=== PATIENT | female | born 1960 | race Caucasian/White ===

== ENCOUNTER 2021-11-07 09:50 | Inpatient (IN) ==
[2021-11-07] MEDS ORDERED: Naloxone 0.4 MG/ML INJ IVP PRN (13:41)
[2021-11-07] MEDS ORDERED: *HR* Promethazine 25 MG/ML VIAL IM PRN (13:41)
[2021-11-07] MEDS ORDERED: Ondansetron 4 MG/2 ML VIAL IVP PRN (13:41)
[2021-11-07] MEDS ORDERED: Melatonin 3 MG TABLET PO PRN (13:41)
[2021-11-07 14:49] LABS: Hematocrit 19.9 % (35.3-44.9); Hemoglobin 6.4 g/dL (11.5-15.4)
[2021-11-07] MEDS ORDERED: Lidocaine -MPF 2% 5 ML VIAL ONE (15:36)
[2021-11-07] MEDS ORDERED: *HR* FentaNYL (PF) 100 MCG/2 ML VIAL ONE (15:36)
[2021-11-07] MEDS ORDERED: *HR* Propofol 200 MG/20 ML VIAL IVP ONE (15:37)
[2021-11-07] MEDS ORDERED: 0.9 % Sodium Chloride 250 ML IVC SCH (16:00)
[2021-11-07] MEDS: Pantoprazole 40 MG VIAL IVP SCH (21:13)
[2021-11-07] MEDS: 0.9 % Sodium Chloride 1,000 ML IVC SCH (23:48)
[2021-11-08 02:09] LABS: Hematocrit 21.7 % (35.3-44.9); Mean Corpuscular HGB Conc 32.3 g/dL (31.6-35.5)
[2021-11-08 02:10] LABS: Basophils % 0.4 %; Eosinophils % 0.3 %; Immature Granulocytes % 5.2 % (0-4); Immature Platelets 5.7 % (1.1-6.1); Lymphocytes % 33.2 %; Mean Corpuscular Hemoglobin 29.7 pg (28.0-33.3); Mean Corpuscular Volume 91.9 fL (83.0-100.0); Mean Platelet Volume 10.6 fL (9.4-12.4); Monocytes # 0.7 K/mcL (0.0-1.3); Monocytes % 9.4 %; Neutrophils # 3.8 K/mcL (1.6-8.9); Red Blood Count 2.36 M/mcL (3.82-4.97); Red Cell Distribution Width 12.6 % (11.5-14.5); Segmented Neutrophils % 51.5 %; White Blood Count 7.4 K/mcL (4.3-11.1)
[2021-11-08 02:12] LABS: Lymphocytes # 2.5 K/mcL (0.6-4.6); Platelet Count 57 K/mcL (140-400)
[2021-11-08 02:21] LABS: Alanine Aminotransferase 8 Units/L (7-52); Albumin 2.8 g/dL (3.5-5.7); Albumin/Globulin Ratio 1.3 (1.1-2.2); Alkaline Phosphatase 124 Units/L (34-104); Aspartate Amino Transferase 39 Units/L (13-39); BUN/Creatinine Ratio 26 (6-26); Bilirubin,Total 0.3 mg/dL (0.3-1.0); Blood Urea Nitrogen 29 mg/dL (8-23); Calcium 8.6 mg/dL (8.6-10.3); Carbon Dioxide 24 mEq/L (23-29); Chloride 111 mEq/L (98-107); Globulin 2.2 g/dL (2.4-3.5); Glucose 108 mg/dL (70-105); Magnesium 1.4 mg/dL (1.6-2.6); Osmolality,Calculated 296 (280-300); Phosphorous 2.7 mg/dL (2.7-4.5); Potassium 4.3 mEq/L (3.5-5.1); Sodium 140 mEq/L (136-145); eGFR For African Americans > 60 (> 60); eGFR For Non-African Americans 50 (> 60)
[2021-11-08] MEDS: Pantoprazole 40 MG VIAL IVP SCH ×2 (06:30→18:24)
[2021-11-08 10:51] LABS: Hematocrit 24.7 % (35.3-44.9); Hemoglobin 8.1 g/dL (11.5-15.4)
[2021-11-08 18:24] LABS: Hematocrit 24.7 % (35.3-44.9); Hemoglobin 8.1 g/dL (11.5-15.4); Mean Corpuscular HGB Conc 32.8 g/dL (31.6-35.5); Mean Corpuscular Hemoglobin 30.2 pg (28.0-33.3); Mean Corpuscular Volume 92.2 fL (83.0-100.0); Mean Platelet Volume 10.8 fL (9.4-12.4); Platelet Count 49 K/mcL (140-400); Red Blood Count 2.68 M/mcL (3.82-4.97); White Blood Count 7.1 K/mcL (4.3-11.1)
[2021-11-08] MEDS: Cyanocobalamin (B-12) 1,000 MCG/ML VIAL SQ SCH (18:30)
[2021-11-09] MEDS: Pantoprazole 40 MG VIAL IVP SCH ×2 (05:08→17:42)
[2021-11-09] MEDS: Benzonatate 100 MG CAPSULE PO PRN (06:22)
[2021-11-09 06:37] LABS: Basophils % 0.2 %
[2021-11-09 06:39] LABS: Eosinophils % 0.2 %; Hematocrit 21.5 % (35.3-44.9); Immature Granulocytes % 1.7 % (0-4); Immature Platelets 6.3 % (1.1-6.1); Lymphocytes # 1.5 K/mcL (0.6-4.6); Lymphocytes % 28.6 %; Mean Corpuscular HGB Conc 32.6 g/dL (31.6-35.5); Mean Corpuscular Hemoglobin 30.4 pg (28.0-33.3); Mean Corpuscular Volume 93.5 fL (83.0-100.0); Mean Platelet Volume 11.1 fL (9.4-12.4); Monocytes # 0.7 K/mcL (0.0-1.3); Monocytes % 13.2 %; Nucleated Red Blood Cells 0.4 /100 WBC (0); Red Cell Distribution Width 13.1 % (11.5-14.5); Segmented Neutrophils % 56.1 %; White Blood Count 5.4 K/mcL (4.3-11.1)
[2021-11-09 06:49] LABS: Platelet Count 41 K/mcL (140-400)
[2021-11-09 08:27] LABS: Alanine Aminotransferase 7 Units/L (7-52); Albumin 2.6 g/dL (3.5-5.7); Albumin/Globulin Ratio 1.2 (1.1-2.2); Alkaline Phosphatase 125 Units/L (34-104); Aspartate Amino Transferase 18 Units/L (13-39); BUN/Creatinine Ratio 15 (6-26); Bilirubin,Total 0.4 mg/dL (0.3-1.0); Blood Urea Nitrogen 15 mg/dL (8-23); Calcium 8.1 mg/dL (8.6-10.3); Carbon Dioxide 23 mEq/L (23-29); Chloride 109 mEq/L (98-107); Globulin 2.1 g/dL (2.4-3.5); Glucose 118 mg/dL (70-105); Osmolality,Calculated 286 (280-300); Potassium 3.8 mEq/L (3.5-5.1); Sodium 137 mEq/L (136-145); Total Protein 4.7 g/dL (6.4-8.9); eGFR For African Americans > 60 (> 60); eGFR For Non-African Americans 58 (> 60)
[2021-11-09] MEDS: Cyanocobalamin (B-12) 1,000 MCG/ML VIAL SQ SCH (08:46)
[2021-11-09 11:30] LABS: Influenza A PCR Negative (Negative); Influenza B PCR Negative (Negative); Resp. Syncytial Virus PCR Negative (Negative)
[2021-11-09 11:43] LABS: SARS-CoV-2 by PCR (In House) Negative (Negative)
[2021-11-09 13:30] LABS: Hemoglobin 7.2 g/dL (11.5-15.4)
[2021-11-09 13:31] LABS: Hematocrit 22.1 % (35.3-44.9)
[2021-11-09] MEDS: 0.9 % Sodium Chloride 1,000 ML IVC SCH (14:12)
[2021-11-09 17:11] LABS: Hematocrit 21.8 % (35.3-44.9); Hemoglobin 7.2 g/dL (11.5-15.4)
[2021-11-09] MEDS: Acetaminophen 325 MG TABLET PO PRN ×2 (18:01→23:25)
[2021-11-09 22:54] LABS: Hematocrit 22.2 % (35.3-44.9); Hemoglobin 7.2 g/dL (11.5-15.4)
[2021-11-10] MEDS: Pantoprazole 40 MG VIAL IVP SCH ×2 (05:54→16:58)
[2021-11-10 06:00] LABS: Hemoglobin 7.1 g/dL (11.5-15.4); Mean Corpuscular Hemoglobin 30.6 pg (28.0-33.3); Red Blood Count 2.32 M/mcL (3.82-4.97)
[2021-11-10 06:01] LABS: Hematocrit 21.7 % (35.3-44.9); Immature Platelets 9.9 % (1.1-6.1); Mean Corpuscular HGB Conc 32.7 g/dL (31.6-35.5); Mean Corpuscular Volume 93.5 fL (83.0-100.0); Mean Platelet Volume 11.7 fL (9.4-12.4); Nucleated Red Blood Cells 0.3 /100 WBC (0); Red Cell Distribution Width 13.1 % (11.5-14.5); White Blood Count 6.7 K/mcL (4.3-11.1)
[2021-11-10 06:03] LABS: Platelet Count 48 K/mcL (140-400)
[2021-11-10 06:15] LABS: Alanine Aminotransferase 8 Units/L (7-52); Albumin 2.8 g/dL (3.5-5.7); Albumin/Globulin Ratio 1.2 (1.1-2.2); Alkaline Phosphatase 141 Units/L (34-104); Aspartate Amino Transferase 12 Units/L (13-39); BUN/Creatinine Ratio 15 (6-26); Bilirubin,Total 0.4 mg/dL (0.3-1.0); Blood Urea Nitrogen 15 mg/dL (8-23); Calcium 8.5 mg/dL (8.6-10.3); Carbon Dioxide 25 mEq/L (23-29); Chloride 106 mEq/L (98-107); Globulin 2.3 g/dL (2.4-3.5); Glucose 107 mg/dL (70-105); Osmolality,Calculated 287 (280-300); Potassium 3.6 mEq/L (3.5-5.1); Sodium 138 mEq/L (136-145); Total Protein 5.1 g/dL (6.4-8.9); eGFR For African Americans > 60 (> 60); eGFR For Non-African Americans 57 (> 60)
[2021-11-10 06:35] LABS: Lymphocytes # 1.8 K/mcL (0.6-4.6); Monocytes # 0.6 K/mcL (0.0-1.3); Neutrophils # 4.3 K/mcL (1.6-8.9); Platelet Estimate Decreased (Normal)
[2021-11-10] MEDS: Cyanocobalamin (B-12) 1,000 MCG/ML VIAL SQ SCH (08:35)
[2021-11-10 12:01] LABS: Adenovirus Not Detected (Not Detect); Bordetella Pertussis Not Detected (Not Detect); Chlamydophila pneumoniae Not Detected (Not Detect); Coronavirus 229E Not Detected (Not Detect); Coronavirus HKU1 Not Detected (Not Detect); Coronavirus NL63 Not Detected (Not Detect); Coronavirus OC43 Not Detected (Not Detect); Human Metapneumovirus Not Detected (Not Detect); Human Rhinovirus/Enterovirus Not Detected (Not Detect); Influenza A Subtype 2009 H1 Not Detected (Not Detect); Influenza B Not Detected (Not Detect); Mycoplasma pneumoniae Not Detected (Not Detect); Parainfluenza Virus 1 Not Detected (Not Detect); Parainfluenza Virus 2 Not Detected (Not Detect); Parainfluenza Virus 3 Not Detected (Not Detect); Parainfluenza Virus 4 Not Detected (Not Detect); Respiratory Syncytial Virus Not Detected (Not Detect); SARS-CoV-2 Not Detected (Not Detect)
[2021-11-10 12:42] LABS: Hematocrit 24.7 % (35.3-44.9)
[2021-11-10 17:46] LABS: Bilirubin,Urine Negative (Negative); Blood,Urine Negative (Negative); Clarity,Urine Clear (Clear); Color,Urine Light-Yellow (Yellow); Glucose,Urine (UA) Normal (Normal); Ketones,Urine Negative (Negative); Leukocyte Esterase,Urine Negative (Negative); Nitrite,Urine Negative (Negative); PH,Urine 5.5 pH Units (5.0-8.0); Protein,Urine Trace mg/dL (Neg-Trace); Specific Gravity,Urine 1.015 (1.010-1.025); Urobilinogen,Urine Normal (Normal)
[2021-11-10 18:00] LABS: Hematocrit 24.1 % (35.3-44.9); Hemoglobin 7.8 g/dL (11.5-15.4)
[2021-11-10] MEDS: Benzonatate 100 MG CAPSULE PO PRN (19:31)
[2021-11-10] MEDS: Acetaminophen 325 MG TABLET PO PRN (20:54)
[2021-11-11] MEDS: Pantoprazole 40 MG VIAL IVP SCH (05:25)
[2021-11-11 08:20] LABS: Basophils % 0.2 %; Eosinophils % 0.1 %; Hemoglobin 7.7 g/dL (11.5-15.4); Red Cell Distribution Width 13.2 % (11.5-14.5)
[2021-11-11 08:22] LABS: Hematocrit 23.5 % (35.3-44.9); Immature Granulocytes % 4.3 % (0-4); Immature Platelets 11.1 % (1.1-6.1); Lymphocytes # 2.2 K/mcL (0.6-4.6); Lymphocytes % 25.6 %; Mean Corpuscular HGB Conc 32.8 g/dL (31.6-35.5); Mean Corpuscular Hemoglobin 30.7 pg (28.0-33.3); Mean Corpuscular Volume 93.6 fL (83.0-100.0); Mean Platelet Volume 11.4 fL (9.4-12.4); Monocytes # 0.9 K/mcL (0.0-1.3); Monocytes % 10.2 %; Neutrophils # 5.1 K/mcL (1.6-8.9); Platelet Count 102 K/mcL (140-400); Red Blood Count 2.51 M/mcL (3.82-4.97); Segmented Neutrophils % 59.6 %; White Blood Count 8.6 K/mcL (4.3-11.1)
[2021-11-11 08:24] LABS: Alanine Aminotransferase 8 Units/L (7-52); Albumin/Globulin Ratio 1.1 (1.1-2.2); Alkaline Phosphatase 154 Units/L (34-104); Aspartate Amino Transferase 11 Units/L (13-39); BUN/Creatinine Ratio 10 (6-26); Bilirubin,Total 0.5 mg/dL (0.3-1.0); Blood Urea Nitrogen 9 mg/dL (8-23); Calcium 8.7 mg/dL (8.6-10.3); Carbon Dioxide 26 mEq/L (23-29); Chloride 103 mEq/L (98-107); Globulin 2.7 g/dL (2.4-3.5); Glucose 119 mg/dL (70-105); Osmolality,Calculated 282 (280-300); Potassium 3.5 mEq/L (3.5-5.1); Sodium 136 mEq/L (136-145); Total Protein 5.7 g/dL (6.4-8.9); eGFR For African Americans > 60 (> 60); eGFR For Non-African Americans > 60 (> 60)
[2021-11-11] MEDS: Cyanocobalamin (B-12) 1,000 MCG/ML VIAL SQ SCH (08:26)
[2021-11-11 11:00] VITALS: BP 116/66; PULSE 92; TEMP 98.8; O2SAT 97
[2021-11-11] MEDS: Benzonatate 100 MG CAPSULE PO PRN (15:27)
== END 2021-11-11 17:45 | disposition home or self-care (01) | DRG 369 ==
LOC: 3NENU
PROVIDERS: ADMIT Hospitalist; ATTEND Hospitalist

== ENCOUNTER 2021-11-14 00:32 | Inpatient (IN) ==
[2021-11-14 02:47] LABS: Alanine Aminotransferase 10 Units/L (7-52); Albumin/Globulin Ratio 0.9 (1.1-2.2); Alkaline Phosphatase 159 Units/L (34-104); Aspartate Amino Transferase 13 Units/L (13-39); BUN/Creatinine Ratio 17 (6-26); Basophils % 0.3 %; Bilirubin,Indirect 0.3 mg/dL (0.0-1.0); Bilirubin,Total 0.3 mg/dL (0.3-1.0); Blood Urea Nitrogen 14 mg/dL (8-23); Calcium 9.2 mg/dL (8.6-10.3); Carbon Dioxide 26 mEq/L (23-29); Chloride 101 mEq/L (98-107); Globulin 3.2 g/dL (2.4-3.5); Glucose 128 mg/dL (70-105); Osmolality,Calculated 284 (280-300); Potassium 3.8 mEq/L (3.5-5.1); Sodium 136 mEq/L (136-145); Total Protein 6.2 g/dL (6.4-8.9); eGFR For African Americans > 60 (> 60); eGFR For Non-African Americans > 60 (> 60)
[2021-11-14 02:49] LABS: Hematocrit 21.3 % (35.3-44.9); Hemoglobin 6.8 g/dL (11.5-15.4); Immature Granulocytes % 3.4 % (0-4); Immature Platelets 7.1 % (1.1-6.1); Lymphocytes # 1.5 K/mcL (0.6-4.6); Lymphocytes % 12.6 %; Mean Corpuscular HGB Conc 31.9 g/dL (31.6-35.5); Mean Corpuscular Hemoglobin 30.4 pg (28.0-33.3); Mean Corpuscular Volume 95.1 fL (83.0-100.0); Mean Platelet Volume 11.3 fL (9.4-12.4); Monocytes # 0.7 K/mcL (0.0-1.3); Monocytes % 6.3 %; Neutrophils # 9.1 K/mcL (1.6-8.9); Platelet Count 349 K/mcL (140-400); Red Blood Count 2.24 M/mcL (3.82-4.97); Red Cell Distribution Width 13.7 % (11.5-14.5); Segmented Neutrophils % 77.4 %; White Blood Count 11.8 K/mcL (4.3-11.1)
[2021-11-14] MEDS ORDERED: Pantoprazole 80 MG in 0.9 % Sodium Chloride 50 ML IVPB ONE (04:59)
[2021-11-14] MEDS ORDERED: Naloxone 0.4 MG/ML INJ IVP PRN (05:21)
[2021-11-14] MEDS ORDERED: Melatonin 3 MG TABLET PO PRN (05:21)
[2021-11-14] MEDS ORDERED: 0.9 % Sodium Chloride 250 ML ONE (05:36)
[2021-11-14] MEDS ORDERED: 0.9 % Sodium Chloride 1,000 ML IVC SCH (05:45)
[2021-11-14] MEDS: Levothyroxine 25 MCG TABLET PO SCH (06:32)
[2021-11-14] MEDS: OLANZapine 5 MG TAB.RAPDIS PO SCH (08:52)
[2021-11-14 10:17] LABS: Hematocrit 21.3 % (35.3-44.9)
[2021-11-14 11:15] LABS: Folate 7.7 ng/mL (3.0-16.0)
[2021-11-14 12:01] LABS: Vitamin B12 > 1500 pg/mL (250-1100)
[2021-11-14] MEDS ORDERED: Anastrozole 1 MG TABLET PO SCH (18:00)
[2021-11-14 18:33] LABS: Hematocrit 21.8 % (35.3-44.9); Hemoglobin 7.1 g/dL (11.5-15.4)
[2021-11-14] MEDS ORDERED: Benzonatate 100 MG CAPSULE PO PRN (20:25)
[2021-11-15] MEDS ORDERED: Pantoprazole 40 MG VIAL IVP SCH (06:00)
[2021-11-15 06:10] LABS: Hematocrit 21.8 % (35.3-44.9)
[2021-11-15] MEDS: Levothyroxine 25 MCG TABLET PO SCH (06:40)
[2021-11-15 06:51] VITALS: BP 128/76; PULSE 94; TEMP 98.3; O2SAT 98
[2021-11-15] MEDS: OLANZapine 5 MG TAB.RAPDIS PO SCH (08:10)
== END 2021-11-15 10:21 | disposition home or self-care (01) | DRG 378 ==
LOC: EMEROOARM 00:32 → 3NENU 00:32 → SUATTDRO 05:34 → 3NENU 06:11
PROVIDERS: ADMIT Internal Medicine; ATTEND Internal Medicine

== ENCOUNTER 2022-03-20 12:31 | Observation (INO) ==
[2022-03-20 13:30] LABS: Immature Granulocytes % 0.4 % (0-4)
[2022-03-20 13:32] LABS: Eosinophils # 0.1 K/mcL (0.0-0.6); Eosinophils % 3.1 %; Hematocrit 18.4 % (35.3-44.9); Immature Platelets 3.9 % (1.1-6.1); Lymphocytes # 0.7 K/mcL (0.6-4.6); Lymphocytes % 28.6 %; Mean Corpuscular Hemoglobin 34.5 pg (28.0-33.3); Mean Corpuscular Volume 111.5 fL (83.0-100.0); Mean Platelet Volume 9.7 fL (9.4-12.4); Monocytes # 0.2 K/mcL (0.0-1.3); Monocytes % 8.4 %; Neutrophils # 1.6 K/mcL (1.6-8.9); Red Blood Count 1.65 M/mcL (3.82-4.97); Red Cell Distribution Width 19.3 % (11.5-14.5); Segmented Neutrophils % 59.5 %; White Blood Count 2.6 K/mcL (4.3-11.1)
[2022-03-20 13:33] LABS: Platelet Count 81 K/mcL (140-400)
[2022-03-20 13:34] LABS: Hemoglobin 5.7 g/dL (11.5-15.4)
[2022-03-20 14:00] LABS: Anisocytosis 1+ (Not Present); Macrocytosis Present (Not Present); Platelet Estimate Decreased (Normal)
[2022-03-20 14:05] LABS: BUN/Creatinine Ratio 13 (6-26); Blood Urea Nitrogen 12 mg/dL (8-23); Calcium 9.2 mg/dL (8.6-10.3); Carbon Dioxide 26 mEq/L (23-29); Chloride 110 mEq/L (98-107); Glucose 89 mg/dL (70-105); Osmolality,Calculated 291 (280-300); Sodium 141 mEq/L (136-145); eGFR For African Americans > 60 (> 60); eGFR For Non-African Americans > 60 (> 60)
[2022-03-20] MEDS ORDERED: Pantoprazole 80 MG in 0.9 % Sodium Chloride 50 ML IVPB ONE (14:47)
[2022-03-20 15:34] LABS: Prothrombin Time 10.9 Seconds (9.4-12.1)
[2022-03-20 15:37] LABS: Activated Partial Thrombo Time 29.8 Seconds (26.0-36.0)
[2022-03-20] MEDS ORDERED: 0.9 % Sodium Chloride 250 ML ONE ×2 (15:47→23:36)
[2022-03-20] MEDS ORDERED: Naloxone 0.4 MG/ML INJ IVP PRN (15:56)
[2022-03-20] MEDS ORDERED: Melatonin 3 MG TABLET PO PRN (16:31)
[2022-03-20] MEDS ORDERED: MOM Conc 10 ML UD.LIQ PO PRN (16:31)
[2022-03-20] MEDS ORDERED: Ondansetron ODT 4 MG TAB.RAPDIS SL PRN (16:31)
[2022-03-20] MEDS ORDERED: Octreotide 50 MCG/ML INJ IVP ONE (17:42)
[2022-03-20] MEDS: Octreotide 400 MCG in 0.9 % Sodium Chloride 100 ML IVC SCH (21:24)
[2022-03-20 21:46] LABS: Hematocrit 21.2 % (35.3-44.9); Hemoglobin 6.7 g/dL (11.5-15.4)
[2022-03-20 22:01] LABS: Albumin 3.6 g/dL (3.5-5.7); Albumin/Globulin Ratio 1.7 (1.1-2.2); Bilirubin,Direct 0.2 mg/dL (0.0-0.2); Bilirubin,Indirect 1.1 mg/dL (0.0-1.0); Bilirubin,Total 1.3 mg/dL (0.3-1.0); Globulin 2.1 g/dL (2.4-3.5); Total Protein 5.7 g/dL (6.4-8.9)
[2022-03-21 03:53] LABS: Eosinophils # 0.1 K/mcL (0.0-0.6); Eosinophils % 3.4 %; Hematocrit 22.2 % (35.3-44.9); Lymphocytes # 0.9 K/mcL (0.6-4.6); Lymphocytes % 44.7 %; Mean Corpuscular HGB Conc 31.5 g/dL (31.6-35.5); Mean Corpuscular Volume 104.7 fL (83.0-100.0); Mean Platelet Volume 10.1 fL (9.4-12.4); Monocytes # 0.2 K/mcL (0.0-1.3); Monocytes % 8.7 %; Neutrophils # 0.9 K/mcL (1.6-8.9); Red Blood Count 2.12 M/mcL (3.82-4.97); Red Cell Distribution Width 22.4 % (11.5-14.5); Segmented Neutrophils % 43.2 %; White Blood Count 2.1 K/mcL (4.3-11.1)
[2022-03-21 04:01] LABS: Alanine Aminotransferase 9 Units/L (7-52); Albumin 3.2 g/dL (3.5-5.7); Albumin/Globulin Ratio 1.5 (1.1-2.2); Alkaline Phosphatase 97 Units/L (34-104); Aspartate Amino Transferase 13 Units/L (13-39); BUN/Creatinine Ratio 10 (6-26); Blood Urea Nitrogen 9 mg/dL (8-23); Calcium 9.1 mg/dL (8.6-10.3); Carbon Dioxide 26 mEq/L (23-29); Chloride 110 mEq/L (98-107); Globulin 2.2 g/dL (2.4-3.5); Glucose 144 mg/dL (70-105); Osmolality,Calculated 289 (280-300); Potassium 4.2 mEq/L (3.5-5.1); Sodium 139 mEq/L (136-145); Total Protein 5.4 g/dL (6.4-8.9); eGFR For African Americans > 60 (> 60); eGFR For Non-African Americans > 60 (> 60)
[2022-03-21 04:32] LABS: Platelet Count 68 K/mcL (140-400)
[2022-03-21] MEDS: Pantoprazole 40 MG VIAL IVP SCH ×2 (06:09→18:55)
[2022-03-21] MEDS: Octreotide 400 MCG in 0.9 % Sodium Chloride 100 ML IVC SCH (09:10)
[2022-03-21] MEDS ORDERED: *HR* Propofol 200 MG/20 ML VIAL IVP ONE (10:44)
[2022-03-21] MEDS ORDERED: Lidocaine -MPF 2% 5 ML VIAL ONE (10:44)
[2022-03-21] MEDS ORDERED: 0.9 % Sodium Chloride 250 ML IVC SCH (13:45)
[2022-03-21] MEDS: Loratadine 10 MG TABLET PO SCH (13:58)
[2022-03-21 18:31] LABS: Hematocrit 26.8 % (35.3-44.9); Hemoglobin 8.5 g/dL (11.5-15.4)
[2022-03-21] MEDS ORDERED: Anastrozole 1 MG TABLET PO SCH (20:00)
[2022-03-22] MEDS: Pantoprazole 40 MG VIAL IVP SCH (07:25)
[2022-03-22 07:46] LABS: Hemoglobin 8.2 g/dL (11.5-15.4)
[2022-03-22 07:48] LABS: Eosinophils # 0.1 K/mcL (0.0-0.6); Eosinophils % 4.4 %; Hematocrit 26.5 % (35.3-44.9); Immature Platelets 4.6 % (1.1-6.1); Lymphocytes # 0.9 K/mcL (0.6-4.6); Lymphocytes % 38.2 %; Mean Corpuscular HGB Conc 30.9 g/dL (31.6-35.5); Mean Corpuscular Hemoglobin 32.3 pg (28.0-33.3); Mean Corpuscular Volume 104.3 fL (83.0-100.0); Mean Platelet Volume 10.5 fL (9.4-12.4); Monocytes # 0.2 K/mcL (0.0-1.3); Monocytes % 10.5 %; Neutrophils # 1.1 K/mcL (1.6-8.9); Red Blood Count 2.54 M/mcL (3.82-4.97); Segmented Neutrophils % 46.9 %; White Blood Count 2.3 K/mcL (4.3-11.1)
[2022-03-22 07:54] LABS: Platelet Count 73 K/mcL (140-400)
[2022-03-22 07:55] LABS: Alanine Aminotransferase 10 Units/L (7-52); Albumin 3.4 g/dL (3.5-5.7); Albumin/Globulin Ratio 1.6 (1.1-2.2); Alkaline Phosphatase 104 Units/L (34-104); Aspartate Amino Transferase 14 Units/L (13-39); BUN/Creatinine Ratio 7 (6-26); Bilirubin,Total 0.8 mg/dL (0.3-1.0); Blood Urea Nitrogen 7 mg/dL (8-23); Calcium 9.1 mg/dL (8.6-10.3); Carbon Dioxide 25 mEq/L (23-29); Chloride 107 mEq/L (98-107); Globulin 2.1 g/dL (2.4-3.5); Glucose 213 mg/dL (70-105); Osmolality,Calculated 290 (280-300); Potassium 4.1 mEq/L (3.5-5.1); Sodium 138 mEq/L (136-145); Total Protein 5.5 g/dL (6.4-8.9); eGFR For African Americans > 60 (> 60); eGFR For Non-African Americans 55 (> 60)
[2022-03-22 08:17] LABS: Anisocytosis 2+ (Not Present); Platelet Estimate Decreased (Normal)
[2022-03-22] MEDS: Loratadine 10 MG TABLET PO SCH (08:55)
[2022-03-22 11:40] VITALS: O2SAT 100
[2022-03-22] MEDS ORDERED: Lidocaine -MPF 2% 5 ML VIAL ONE (13:53)
[2022-03-22] MEDS ORDERED: *HR* Propofol 200 MG/20 ML VIAL IVP ONE (14:20)
[2022-03-22 16:35] VITALS: BP 135/80; PULSE 59; TEMP 96.7
== END 2022-03-22 17:25 | disposition home or self-care (01) ==
LOC: EMEROOARM 12:31 → 3NENU 12:31 → SUATTDRO 16:12 → 3NENU 17:30
PROVIDERS: ADMIT Family Medicine; ATTEND Student in an Organized Health Care Education/Training Program